=== PATIENT | male | born 1985 | race Caucasian/White ===

== ENCOUNTER 2022-02-04 13:08 | Emergency (ER) | payer MEDICAID, SELFPAY ==
[2022-02-04 13:23] VITALS: BP 120/64; PULSE 95; RESP 16; TEMP 36.7; O2SAT 98; BMI 22.1
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
[2022-02-04] MEDS: Ibuprofen 600 MG TABLET PO (18:35)
--- NOTE | 2022-02-04 18:39 | PC.NURSE ---
pt a&ox3, medicated per provider order.
== END 2022-02-04 18:40 | disposition home or self-care (01) ==
PROVIDERS: Emergency Provider Emergency Medicine
DX: S16.1XXA Strain of muscle, fascia and tendon at neck level, initial encounter (principal); S39.012A Strain of muscle, fascia and tendon of lower back, initial encounter; V43.52XA Car driver injured in collision with other type car in traffic accident, initial encounter; R51.9 Headache, unspecified; Y93.89 Activity, other specified; Y92.414 Local residential or business street as the place of occurrence of the external cause; Y99.8 Other external cause status
CPT/HCPCS: 99283

== ENCOUNTER 2022-04-10 11:58 | Emergency (ER) | payer MEDICAID, SELFPAY ==
[2022-04-10 12:10] VITALS: BP 120/74; PULSE 85; RESP 18; TEMP 36.7; O2SAT 97; BMI 22.1
[2022-04-10] MEDS: Tetracaine HCl/PF 0.5% Oph Sol 4 ML DROPS 3 DROP EYE-BOTH (12:30)
[2022-04-10] MEDS: Fluorescein Sodium STRIP 1 STRIP EYE-BOTH (12:31)
--- NOTE | 2022-04-10 12:42 | ED_ITS ---
HPI - Eye Problem General Chief complaint: Eye Problems Stated complaint: metal in eye Time Seen by Provider: 04/10/22 12:18 Source: patient Mode of arrival: ambulatory History of Present Illness HPI Narrative: 36-year-old male with no significant past medical history presenting to the ED complaining of foreign body to right eye since s/p welding at work and something hitting eye, admits was wearing safety glasses. Was seen at urgent care last night, they attempted to remove foreign body with needle however unsuccessful and was instructed to come to the ED. reports increased tearing and discomfort to right eye. denies wearing glasses or contacts, vision change/loss, fever. Was not given any prescriptions upon urgent care discharge. MD chief complaint: eye pain and foreign body Onset (ago): day(s) Related Data Previous Rx's Medication Instructions Recorded cyclobenzaprine 10 mg tablet 10 mg PO TID PRN muscle spasm #20 02/04/22 tabs ibuprofen 800 mg tablet 800 mg PO Q8H PRN pain #30 tabs 02/04/22 erythromycin 5 mg/gram (0.5 %) eye 1 appl ophthalmic (eye) 6XD 7 days 04/10/22 ointment #3.5 grams Allergies Allergy/AdvReac Type Severity Reaction Status Date / Time percocet Allergy Unknown itching Uncoded 08/24/12 00:00 Review of Systems Review of Systems: Constitutional: No Fever, No Chills, No Fatigue, No Malaise ENT/Mouth: No Ear Pain, No Nasal Congestion, No sore throat, No Rhinorrhea, No Swallowing Difficulty Eyes: + Eye Pain, No Swelling, + Redness, + Foreign Body, + tearing, No Vision Changes Cardiovascular: No Chest Pain, No SOB, No Palpitations Respiratory: No Cough, No Sputum, No Dyspnea Gastrointestinal: No Nausea, No Vomiting, No Diarrhea, No Constipation, No Abdominal pain Musculoskeletal: No joint pain, No Myalgias, No Joint Swelling Skin: No Skin Lesions, No rash Neuro: No Weakness, No Numbness, No Paresthesias, No Loss of Consciousness, No Dizziness, No Headache Yes all other systems are reviewed and are negative Constitutional: Constitutional: Reports as per [facility] Past Medical History Attestation statement: The following information was validated with the patient. Social History Social History Advance Directives: No Advance Directives Information Provided: Yes Physical Exam Vital Signs: Vital Signs: Last Vital Signs Temp 98.0 F 04/10/22 12:10 Pulse 85 04/10/22 12:10 Resp 18 04/10/22 12:10 BP 120/74 04/10/22 12:10 Pulse Ox 97 04/10/22 12:10 O2 Del Method 04/10/22 12:10 BMI result Body Mass Index 22.1 Const: General: cooperative, healthy appearing and no acute distress Orientation/consciousness: patient oriented x3 Limitations: no limitations HEENT: Head: Yes normal to inspection and Yes atraumatic Ears: hearing grossly normal bilaterally General nose exam: Normal external nose present Face and sinus: Yes normal facial exam Eyes: General: appearance normal, both eyes and all related structures Alignment and Position: alignment normal Periorbital: periorbital findings normal Eyelids: Yes eyelids normal Conjunctivae: conjunctival abnormal right conjunctival injection Corneas: corneas abnormal on the right fluorescein used and foreign body metallic and at clock position (4 o'clock); without a rust ring and fluorescein used Pupils: Equal, round and reactive pupils present EOM: EOMs intact bilaterally Direct Ophthalmoscopy: normal light reflex Neck: Neck: Yes normal visual inspection and Yes no meningeal signs Resp: Effort & Inspection: normal respiratory effort and no respiratory distress Cardio: Rate: regular rate Heart sounds: S1 normal heart sound present and S2 normal heart sound present Skin: Rashes: no rashes Wounds: no wounds Neuro: General: patient oriented x3, tone normal and no meningeal signs Cranial nerves: Yes Equal, round and reactive pupils present Gait exam (Neuro): Normal gait present Extrem: General: Yes normal to inspection Course Course Course Narrative: -foreign body successfully removed with 21 gauge needle Results discussed with patient including worrisome signs and symptoms and strict return precautions, and when to return to the emergency department. They verbalized understanding and feel safe for discharge at this time. MDM - Eye Problem MDM Narrative Medical decision making narrative: 36-year-old male with no significant past medical history presenting to the ED complaining of foreign body to right eye since s/p welding at work and something hitting eye, admits was wearing safety glasses. On exam vital signs stable, NAD, nontoxic, foreign body visualized in right eye at 04:00 o'clock position, no appreciable rust ring. Fluorescein uptake at foreign body site. Visual acuity 20/25 in bilateral eyes. No evidence of periorbital/orbital cellulitis or globe rupture. No appreciable ulceration Plan: Foreign body removal attempt Differential Diagnosis Differential diagnosis: Likely corneal abrasion; Unlikely periorbital cellulitis or corneal ulcer Medical Records Attestation: I reviewed the patient's medical records. Lab Data Attestation: I reviewed the patient's lab results. Procedures FB Removal Eye Location: eye (R) Topical anesthetic used: tetracaine Foreign body: metal Evidence of corneal penetration: Yes Technique: cotton tip swab and needle Procedure performed under: direct visualization with magnification Post-procedure medication: ophthalmic antibiotic Patient tolerated procedure: well Discharge Plan Discharge Clinical Impression: Foreign body in eye Patient Disposition: Home, Self-Care Instructions: Eye Foreign Body (ED) Additional Instructions: The foreign body was removed from your eye today. Start using erythromycin eye ointment YOU NEED TO HAVE CLOSE FOLLOW-UP WITH OPHTHALMOLOGY, CALL Tuesday TO MAKE AN APPOINTMENT If he develops vision change/loss, increasing or unremitting pain please return to the emergency department Prescriptions: New erythromycin 5 mg/gram (0.5 %) ointment 1 appl ophthalmic (eye) 6XD 7 Days Qty: 3.5 0RF No Action cyclobenzaprine 10 mg tablet 10 mg PO TID PRN (Reason: muscle spasm) Qty: 20 0RF ibuprofen 800 mg tablet 800 mg PO Q8H PRN (Reason: pain) Qty: 30 0RF Referrals: Jordi Hyde [Physician] - 2 days Stand Alone Forms: Work/School Release
== END 2022-04-10 13:00 | disposition home or self-care (01) ==
PROVIDERS: Emergency Provider Emergency Medicine
DX: T15.01XA Foreign body in cornea, right eye, initial encounter (principal); X58.XXXA Exposure to other specified factors, initial encounter; Y93.89 Activity, other specified; Y92.9 Unspecified place or not applicable; Y99.8 Other external cause status
CPT/HCPCS: 65220; 99283; 99284

== ENCOUNTER 2022-07-09 09:42 | Emergency (ER) | payer MEDICAID, SELFPAY ==
[2022-07-09 09:56] VITALS: BP 128/91; PULSE 87; RESP 18; TEMP 36.6; O2SAT 99; BMI 22.1
[2022-07-09] MEDS: Tetracaine HCl/PF 0.5% Oph Sol 4 ML DROPS 1 DROP EYE-RIGHT (10:55)
[2022-07-09] MEDS: Fluorescein Sodium STRIP 1 STRIP EYE-RIGHT (10:56)
--- NOTE | 2022-07-09 10:59 | ED.EYEPROB ---
HPI - Eye Problem General Chief complaint: Eye Problems <Leonor Doshi NP - Last Filed: 07/09/22 11:24> Stated complaint: fb r eye metal WRI <Leonor Doshi NP - Last Filed: 07/09/22 11:24> Time Seen by Provider: 07/09/22 10:23 <Leonor Doshi NP - Last Filed: 07/09/22 11:24> Source: patient and family <Leonor oDshi NP - Last Filed: 07/09/22 11:24> Mode of arrival: ambulatory <Leonor Doshi NP - Last Filed: 07/09/22 11:24> Limitations: no limitations <Leonor Doshi NP - Last Filed: 07/09/22 11:24> History of Present Illness HPI Narrative: 37-year-old male healthy, up-to-date with tetanus presents with right eye pain, tearing after he believes a 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 Patient reports he was wearing safety glasses but he felt a piece of metal while he was running go in his eye. He thought of fell out when he woke up this morning he had redness, pain, tearing from the right eye. Patient does not use any contacts. Patient reports history of metal foreign body in the past. Has been seen by Dr. Hyde before. <Leonor Doshi NP - Last Filed: 07/09/22 11:24> MD chief complaint: eye pain and eye redness <Leonor Doshi NP - Last Filed: 07/09/22 11:24> Related Data Home medications: Previous Rx's Medication Instructions Recorded cyclobenzaprine 10 mg tablet 10 mg PO TID PRN muscle spasm #20 02/04/22 tabs ibuprofen 800 mg tablet 800 mg PO Q8H PRN pain #30 tabs 02/04/22 erythromycin 5 mg/gram (0.5 %) eye 1 appl ophthalmic (eye) 6XD 7 days 04/10/22 ointment #3.5 grams <Leonor Doshi NP - Last Filed: 07/09/22 11:24> Allergies/adverse reactions: Allergies Allergy/AdvReac Type Severity Reaction Status Date / Time percocet Allergy Unknown itching Uncoded 07/09/22 10:00 <Leonor Doshi NP - Last Filed: 07/09/22 11:24> Review of Systems Review of Systems: Yes all other systems are reviewed and are negative <Leonor Doshi NP - Last Filed: 07/09/22 11:24> Constitutional: Constitutional: Reports no additional constitutional complaints, Denies body ache(s), Denies chills, Denies fever(s), Denies headache(s) and Denies weakness <Leonor Doshi MANAGER HARDWARE - Last Filed: 07/09/22 11:24> Eyes: Eyes: Reports no additional eye complaints, Denies change in vision, Reports eye discharge, Reports eye pain and Reports photophobia <Leonor Doshi NP - Last Filed: 07/09/22 11:24> ENT: Reports system reviewed and no additional complaints, except as documented, Denies dizziness, Denies headache(s), Denies nasal congestion, Denies nasal discharge and Denies neck pain <Leonor Doshi NP - Last Filed: 07/09/22 11:24> Cardiovascular: Cardiovascular: Reports no additional cardiovascular complaints, Denies chest pain, Denies leg edema and Denies dyspnea <Leonor Doshi MANAGER HARDWARE - Last Filed: 07/09/22 11:24> Respiratory: Respiratory: Reports no additional respiratory complaints, Denies cough and Denies dyspnea <Leonor Doshi NP - Last Filed: 07/09/22 11:24> Gastrointestinal: Gastrointestinal: Reports no additional gastrointestinal complaints, Denies abdominal pain, Denies diarrhea, Denies nausea and Denies vomiting <Leonor Doshi MANAGER HARDWARE - Last Filed: 07/09/22 11:24> Genitourinary: Genitourinary: Denies urinary incontinence <Leonor Doshi NP - Last Filed: 07/09/22 11:24> Musculoskeletal: Musculoskeletal: Reports no additional musculoskeletal complaints, Denies back pain, Denies arthralgias, Denies joint swelling, Denies neck pain, Denies numbness and Denies tingling <Leonor Doshi MANAGER HARDWARE - Last Filed: 07/09/22 11:24> Integumentary/Breasts: Skin/Breast: Reports system reviewed and no additional complaints, except as docu and Denies rash <Leonor Doshi NP - Last Filed: 07/09/22 11:24> Neurologic: Reports system reviewed and no additional complaints, except as documented, Denies Abnormal speech present, Denies dizziness, Denies headache(s), Denies numbness, Denies tingling and Denies weakness <Leonor Doshi NP - Last Filed: 07/09/22 11:24> [facility] Past Medical History Attestation statement: The following information was validated with the patient. <Leonor Doshi NP - Last Filed: 07/09/22 11:24> Source: old records reviewed and nursing notes reviewed <Leonor Doshi NP - Last Filed: 07/09/22 11:24> Social History Social History: Social History Advance Directives: No Advance Directives Information Provided: Yes <Leonor Doshi NP - Last Filed: 07/09/22 11:24> Physical Exam Vital Signs: Vital Signs: Last Vital Signs Temp 97.8 F 07/09/22 09:56 Pulse 87 07/09/22 09:56 Resp 18 07/09/22 09:56 BP 128/91 H 07/09/22 09:56 Pulse Ox 99 07/09/22 09:56 O2 Del Method 07/09/22 09:56 BMI result Body Mass Index 22.1 <Leonor Doshi NP - Last Filed: 07/09/22 11:24> Vital Signs: Last Vital Signs Temp 97.8 F 07/09/22 09:56 Pulse 87 07/09/22 09:56 Resp 18 07/09/22 09:56 BP 128/91 H 07/09/22 09:56 Pulse Ox 99 07/09/22 09:56 O2 Del Method 07/09/22 09:56 BMI result Body Mass Index 22.1 <Adalberto Valentine MD - Last Filed: 07/09/22 15:58> Const: General: cooperative, healthy appearing, comfortable and no acute distress <Leonor Doshi NP - Last Filed: 07/09/22 11:24> Orientation/consciousness: patient oriented x3 <Leonor Doshi NP - Last Filed: 07/09/22 11:24> Limitations: no limitations <Leonor Doshi NP - Last Filed: 07/09/22 11:24> HEENT: Head: Yes normal to inspection <Leonor Doshi MANAGER HARDWARE - Last Filed: 07/09/22 11:24> Ears: hearing grossly normal bilaterally and TM's normal bilaterally <Leonor Doshi MANAGER HARDWARE - Last Filed: 07/09/22 11:24> General nose exam: Normal external nose present <Leonor Doshi NP - Last Filed: 07/09/22 11:24> Face and sinus: Yes normal facial exam <Leonor Doshi MANAGER HARDWARE - Last Filed: 07/09/22 11:24> Mouth: Normal oral and palatal mucosa present <Leonor Doshi MANAGER HARDWARE - Last Filed: 07/09/22 11:24> Throat: Yes posterior oropharynx normal <Leonor Doshi MANAGER HARDWARE - Last Filed: 07/09/22 11:24> Eyes: Other: See documentation of visual acuity <Leonor Doshi NP - Last Filed: 07/09/22 11:24> General: appearance normal, both eyes and all related structures <Leonor Doshi NP - Last Filed: 07/09/22 11:24> Visual Barroso: normal visual barroso by confrontation <Leonor Doshi MANAGER HARDWARE - Last Filed: 07/09/22 11:24> Alignment and Position: alignment normal <Leonor Doshi NP - Last Filed: 07/09/22 11:24> Periorbital: periorbital findings normal <Leonor Doshi NP - Last Filed: 07/09/22 11:24> Eyelids: Yes eyelids normal <Leonor Doshi NP - Last Filed: 07/09/22 11:24> Conjunctivae: conjunctival abnormal (Right conjunctival injection) <Leonor Doshi MANAGER HARDWARE - Last Filed: 07/09/22 11:24> Sclerae: scleral abnormal (Right scleral edema) <Leonor Doshi MANAGER HARDWARE - Last Filed: 07/09/22 11:24> Corneas: corneas abnormal and fluorescein used (At the 5 o'clock position of the cornea there is a foreign bodyw/rust ring) <Leonor Doshi MANAGER HARDWARE - Last Filed: 07/09/22 11:24> Pupils: Equal, round and reactive pupils present <Leonor Doshi MANAGER HARDWARE - Last Filed: 07/09/22 11:24> EOM: EOMs intact bilaterally <Leonor Doshi MANAGER HARDWARE - Last Filed: 07/09/22 11:24> Direct Ophthalmoscopy: normal light reflex and photophobia <Leonor Doshi MANAGER HARDWARE - Last Filed: 07/09/22 11:24> Neck: Neck: Yes normal visual inspection <Leonor Doshi MANAGER HARDWARE - Last Filed: 07/09/22 11:24> Chest: Chest palpation & inspection: normal inspection of the chest <Leonor Doshi MANAGER HARDWARE - Last Filed: 07/09/22 11:24> Resp: Effort & Inspection: normal respiratory effort <Leonor Doshi MANAGER HARDWARE - Last Filed: 07/09/22 11:24> Auscultation: clear to auscultation bilaterally <Leonor Doshi MANAGER HARDWARE - Last Filed: 07/09/22 11:24> Cardio: Rate: regular rate <Leonor Doshi MANAGER HARDWARE - Last Filed: 07/09/22 11:24> Rhythm: regular rhythm <Leonor Doshi MANAGER HARDWARE - Last Filed: 07/09/22 11:24> Peripheral pulses: Peripheral pulses 2+ throughout <Leonor Doshi MANAGER HARDWARE - Last Filed: 07/09/22 11:24> GI: Inspection: Yes normal to inspection <Leonor Doshi MANAGER HARDWARE - Last Filed: 07/09/22 11:24> Palpation (GI): Soft to palpation and nontender <Leonor Doshi MANAGER HARDWARE - Last Filed: 07/09/22 11:24> Auscultation: normal bowel sounds <Leonor Doshi MANAGER HARDWARE - Last Filed: 07/09/22 11:24> Back/Spine/Pelvis: Thoracic/Lumbar Spine: thoracic and lumbar spine normal to inspection <Leonor Doshi MANAGER HARDWARE - Last Filed: 07/09/22 11:24> Skin: General skin exam: no rashes or lesions noted <Leonor Doshi MANAGER HARDWARE - Last Filed: 07/09/22 11:24> Neuro: General: patient oriented x3, no focal motor deficits and normal sensation to monofilament <Leonor Doshi MANAGER HARDWARE - Last Filed: 07/09/22 11:24> Cranial nerves: Yes Equal, round and reactive pupils present <Leonor Doshi MANAGER HARDWARE - Last Filed: 07/09/22 11:24> Cognition (Neuro): normal cognition <Leonor Doshi MANAGER HARDWARE - Last Filed: 07/09/22 11:24> Speech: No Abnormal speech present <Leonor Doshi MANAGER HARDWARE - Last Filed: 07/09/22 11:24> Gait exam (Neuro): Normal gait present <Leonor Doshi MANAGER HARDWARE - Last Filed: 07/09/22 11:24> Motor exam (neuro): 5/5 motor strength present throughout <Leonor Doshi MANAGER HARDWARE - Last Filed: 07/09/22 11:24> Extrem: General: Yes normal to inspection <Leonor Doshi MANAGER HARDWARE - Last Filed: 07/09/22 11:24> Medications Administered Discontinued Medications Generic Name Dose Route Start Last Admin Trade Name Freq PRN Reason Stop Dose Admin Fluorescein Sodium 1 strip 07/09/22 10:03 07/09/22 10:56 Fluorescein Sodium Strip EYE-RIGHT 07/09/22 10:04 1 strip ONCE ONE Administration Tetracaine HCl 1 drop 07/09/22 10:03 07/09/22 10:55 Tetracaine Hcl/Pf 0.5% Oph Kaela 4 Ml Drops EYE-RIGHT 07/09/22 10:04 1 drop ONCE ONE Administration <Leonor Doshi MANAGER HARDWARE - Last Filed: 07/09/22 11:24> Medications Administered Discontinued Medications Generic Name Dose Route Start Last Admin Trade Name Freq PRN Reason Stop Dose Admin Fluorescein Sodium 1 strip 07/09/22 10:03 07/09/22 10:56 Fluorescein Sodium Strip EYE-RIGHT 07/09/22 10:04 1 strip ONCE ONE Administration Tetracaine HCl 1 drop 07/09/22 10:03 07/09/22 10:55 Tetracaine Hcl/Pf 0.5% Oph Kaela 4 Ml Drops EYE-RIGHT 07/09/22 10:04 1 drop ONCE ONE Administration <Adalberto Valentine MD - Last Filed: 07/09/22 15:58> Medical Decision Making Medical Decision Making MDM Narrative: 37-year-old male here with foreign body right eye from work injury yesterday. Patient with redness, pain and tearing from the right eye. Tetanus is up-to-date. Will need visual acuity, eye exam. <Leonor Doshi NP - Last Filed: 07/09/22 11:24> Differential Diagnosis Differential Diagnoses: The differential diagnosis associated with the presentation includes <Leonor Doshi NP - Last Filed: 07/09/22 11:24> Foreign body, abrasion <Leonor Doshi NP - Last Filed: 07/09/22 11:24> Consult Healthcare Provider Management of the patient was discussed with: Pharmacist Helper <Leonor Doshi NP - Last Filed: 07/09/22 11:24> Discussed with morning caregiver Dr. Hyde. Will see patient in office today due to rust ring present on exam. He will treat the patient with any outpatient prescriptions that are deemed appropriate. Recommended no installation of antibiotic eye ointment or eyedrops prior to evaluation <Leonor Doshi NP - Last Filed: 07/09/22 11:24> Attestation Attending Attestation: I personally reviewed PA/resident/nurse practitioner note. I reviewed a all results and treatment plan. I agree with the assessment and plan. I agree with disposition <Adalberto Valentine MD - Last Filed: 07/09/22 15:58> Procedures Foreign Body Removal Site: right (eye) <Leonor Doshi NP - Last Filed: 07/09/22 11:24> Description of foreign body: other (Metal) <Leonor Doshi NP - Last Filed: 07/09/22 11:24> Sedation/Analgesia: other (Topical tetracaine) <Leonor Doshi NP - Last Filed: 07/09/22 11:24> Technique: other (Removed with 18 gauge needle) <Leonor Doshi NP - Last Filed: 07/09/22 11:24> Confirmed by:: direct visualization <Leonor Doshi NP - Last Filed: 07/09/22 11:24> Complications: none <Leonor Doshi NP - Last Filed: 07/09/22 11:24> Post-procedure exam: awake, alert <Leonor Doshi NP - Last Filed: 07/09/22 11:24> Neurovascular: other (Patient feels better postprocedure) <Leonor Doshi NP - Last Filed: 07/09/22 11:24> Discharge Plan Discharge Clinical Impression: Eye foreign body, Corneal rust ring <Leonor Doshi NP - Last Filed: 07/09/22 11:24> Patient Disposition: Home, Self-Care <Leonor Doshi NP - Last Filed: 07/09/22 11:24> Instructions: Eye Foreign Body (ED) <Leonor Doshi NP - Last Filed: 07/09/22 11:24> Additional Instructions: Go direct to Dr. Hyde office <Leonor Doshi NP - Last Filed: 07/09/22 11:24> Prescriptions: No Action cyclobenzaprine 10 mg tablet 10 mg PO TID PRN (Reason: muscle spasm) Qty: 20 0RF ibuprofen 800 mg tablet 800 mg PO Q8H PRN (Reason: pain) Qty: 30 0RF erythromycin 5 mg/gram (0.5 %) ointment 1 appl ophthalmic (eye) 6XD 7 Days Qty: 3.5 0RF <Leonor Doshi NP - Last Filed: 07/09/22 11:24> Referrals: Jordi Hyde [Physician] - 1 day <Leonor Doshi NP - Last Filed: 07/09/22 11:24> Stand Alone Forms: Work/School Release <Leonor Doshi NP - Last Filed: 07/09/22 11:24> Interventions: ED Discharge Assessment Last Done: 07/09/22 11:19 <Leonor Doshi NP - Last Filed: 07/09/22 11:24> Discharge Date/Time: 07/09/22 11:20 <Leonor Doshi NP - Last Filed: 07/09/22 11:24>
--- NOTE | 2022-07-09 11:00 | PC.NURSE ---
pt a+o x4, vss. pt c/o r eye pain relating to metal fragment that got into his eye yesterday while working. 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 he said the pain kept him up all night. he also reported that his vision was obstructed because he had difficulty keeping his eye open. pt has history of foreign object in the same eye. no other complaints.
== END 2022-07-09 11:20 | disposition home or self-care (01) ==
PROVIDERS: Emergency Provider Emergency Medicine
DX: T15.01XA Foreign body in cornea, right eye, initial encounter (principal); H44.701 Unspecified retained (old) intraocular foreign body, nonmagnetic, right eye
CPT/HCPCS: 65220; 99282; 99283

== ENCOUNTER 2023-05-27 08:13 | Emergency (ER) | payer OTHER, SELFPAY ==
--- NOTE | 2023-05-27 08:27 | ED_ITS ---
HPI - Altered Mental Status General Chief Complaint: Overdose Stated Complaint: unconscious Time Seen by Provider: 05/27/23 08:20 Source: patient and EMS Mode of arrival: EMS Limitations: no limitations History of Present Illness HPI narrative: Patient found unconscious with heroine next to him. He was awake and alert for EMS, he never received narcan. Patient denies suicidal or homicidal ideation. Denies using heroine this morning Onset (ago): minute(s) Related Data Previous Rx's Medication Instructions Recorded cyclobenzaprine 10 mg tablet 10 mg PO TID PRN muscle spasm #20 02/04/22 tabs ibuprofen 800 mg tablet 800 mg PO Q8H PRN pain #30 tabs 02/04/22 erythromycin 5 mg/gram (0.5 %) eye 1 appl ophthalmic (eye) 6XD 7 days 04/10/22 ointment #3.5 grams Allergies Allergy/AdvReac Type Severity Reaction Status Date / Time No Known Allergies Allergy Verified 05/27/23 08:45 Review of Systems Review of Systems: Yes all other systems are reviewed and are negative Neurologic: Denies Sensory deficit (Neuro) [facility] Social History Social History Unable to assess alcohol history related to: Refusing to respond Smoked in Last 30 Days: Yes Use of substances other than those prescribed or required for medical reasons: Refusing to respond Advance Directives: No Physical Exam ED Vital Signs: Vital Signs - 24 hr 05/27/23 08:31 Temperature 98.0 F Pulse Rate 83 Respiratory Rate 18 Blood Pressure 129/66 Pulse Oximetry 98 Oxygen Delivery Method Room Air BMI result Body Mass Index 22.2 Const Other: Male unkept looking older than stated age, lethargic Nutritional Appearance: average body habitus Orientation/consciousness: oriented to person and patient oriented x3 Limitations: no limitations HENMT Head: Yes normal to inspection Ears: external ears normal General nose exam: Normal external nose present Mouth: Normal oral and palatal mucosa present and oropharynx normal Throat: Yes posterior oropharynx normal Eyes Other: pinpoint pupils Neck Neck: Yes normal visual inspection Chest Chest palpation & inspection: normal inspection of the chest Resp Auscultation: clear to auscultation bilaterally Cardio Jugular venous distension: no JVD Rate: regular rate Rhythm: regular rhythm Heart sounds: S1 normal heart sound present and S2 normal heart sound present GI Inspection: Yes normal to inspection Palpation (GI): Soft to palpation, nontender and No hepatosplenomegaly present Auscultation: normal bowel sounds General: Yes no CVA tenderness Back/Spine/Pelvis Back: no CVA tenderness Skin General skin exam: no rashes or lesions noted Neuro General: oriented to person and patient oriented x3 Cranial nerves: Yes CN's II-XII intact bilaterally Motor exam (neuro): 5/5 motor strength present throughout Sensory Exam: No Sensory deficit (Neuro) Extrem General: Yes normal to inspection Psych Appearance: grossly normal Course Reevaluation(s) Reevaluation #1: Patient still awake able to ambulate, will dc home Time: 09:32 Medical Decision Making Differential Diagnosis Differential Diagnoses: The differential diagnosis associated with the presentation includes (opiate use, exhaustion) Admission/Observation Consideration of admission/observation: Escalation of care including admission/observation considered (upon arrival patient was considered for admission) Independent Historian Clinical information obtained from an independent historian. History obtained from or confirmed by: EMS and Other (police) Tests considered The following testing was considered but not selected: head CT considered but patient is nonfocal awake Chronic Conditions Patient?s care impacted by: Other (drug use) Social Determinants Patient?s care significantly limited by Social Determinants of Health including: Alcoholism and drug addiction in family Discharge Plan Discharge Clinical Impression: Exhaustion, Drug abuse Patient Disposition: Home, Self-Care Instructions: Fatigue (ED), Polysubstance Abuse (ED) Additional Instructions: should you use heroine or other opiate make sure you have someone to administer you narcan Prescriptions: No Action cyclobenzaprine 10 mg tablet 10 mg PO TID PRN (Reason: muscle spasm) Qty: 20 0RF ibuprofen 800 mg tablet 800 mg PO Q8H PRN (Reason: pain) Qty: 30 0RF erythromycin 5 mg/gram (0.5 %) ointment 1 appl ophthalmic (eye) 6XD 7 Days Qty: 3.5 0RF Referrals: Physician,Unknown J [Primary Care Provider] - 5 days
[2023-05-27 08:31] VITALS: BP 129/66; BP 148/90; PULSE 83; PULSE 84; RESP 18; TEMP 36.7; O2SAT 98; BMI 22.2
[2023-05-27] MEDS: Naloxone HCl Nasal TAKE HOME 4 MG SPRAY 8 MG NOSTRILALT (09:56)
== END 2023-05-27 09:56 | disposition home or self-care (01) ==
PROVIDERS: Emergency Provider Emergency Medicine
DX: T40.1X1A Poisoning by heroin, accidental (unintentional), initial encounter (principal); Y92.9 Unspecified place or not applicable; Z71.51 Drug abuse counseling and surveillance of drug abuser
CPT/HCPCS: 99283; 99284

== ENCOUNTER 2024-08-12 08:02 | Emergency (ER) | payer OTHER, SELFPAY ==
[2024-08-12 08:05] VITALS: BP 106/66; PULSE 94; RESP 18; TEMP 36.4; O2SAT 99; BMI 20.3
--- NOTE | 2024-08-12 09:31 | ED.GENADULT ---
HPI - General Adult General Chief complaint: Skin/Abscess/Foreign Body Stated complaint: abscess on arm Time Seen by Provider: 08/12/24 11:23 History of Present Illness HPI narrative: Patient complains of left forearm abscess that started several days ago, it is getting bigger now there is some redness around it There is no fever no chills no red stripe up arm, neurovascular intact distal any can move fingers hand and wrist normally He also complains of having a cold over the last 2 weeks, he did have a cough but it is very improved and he feels like he is getting better Related Data Previous Rx's ?Medication ?Instructions ?Recorded cyclobenzaprine 10 mg tablet 10 mg PO TID PRN muscle spasm #20 02/04/22 tabs ibuprofen 800 mg tablet 800 mg PO Q8H PRN pain #30 tabs 02/04/22 erythromycin 5 mg/gram (0.5 %) eye 1 appl ophthalmic (eye) 6XD 7 days 04/10/22 ointment #3.5 grams albuterol sulfate 90 mcg/actuation 2 puff inhalation Q4-6H PRN 08/12/24 aerosol inhaler shortness of breath or wheezing #8.5 grams cephalexin 500 mg tablet 500 mg PO QID 7 days #28 tabs 08/12/24 doxycycline hyclate 100 mg capsule 100 mg PO BID 7 days #14 caps 08/12/24 Allergies Allergy/AdvReac Type Severity Reaction Status Date / Time No Known Allergies Allergy Verified 08/12/24 08:15 [facility] Past Medical History [facility] Narrative: Patient uses heroin regularly by injection, he does have a history of sepsis after a similar abscess Source: nursing notes reviewed Social History Social History Unable to assess alcohol history related to: Refusing to respond Advance Directives: No Advance Directives Information Provided: No Physical Exam ED Vital Signs: Vital Signs - 24 hr 08/12/24 08:05 Temperature 97.5 F Pulse Rate 94 Respiratory Rate 18 Blood Pressure 106/66 Pulse Oximetry 99 Oxygen Delivery Method Room Air BMI result Body Mass Index 20.3 General appearance is calm comfortable no acute distress breathing easily The neck is supple The pharynx is clear The chest is clear to auscultation with full symmetric equal breath sounds no wheezing no adventitious sounds Heart no murmur Extremities full range motion x4 Skin exam the right lateral forearm has an area of fluctuance with surrounding erythema in the mid forearm, neurovascular intact distal, no lymphangitis Except for the abscess fluctuant area there was no other arm swelling Course Course Course Narrative: RME performed by Jenny Fishman PA-C. Patient is a 39 year old assigned male at presenting to the emergency department with a left forearm abscess. Detailed physical exam and review of systems are deferred to the water truck driver. Patient placed back in the waiting room pending room availability. Procedure note Left forearm abscess is cleansed with Betadine Anesthesia 5 cc 2% lidocaine Incision was made which was then probed with forceps with discharge of copious pus Packing was placed dressing applied The patient shows no evidence of pneumonia, he has had a cold for 2 weeks and is improving, vitals were normal lungs were clear Medications Administered Discontinued Medications Generic Name Dose Route Start Last Admin Trade Name Freq PRN Reason Stop Dose Admin Cephalexin HCl 500 mg 08/12/24 11:23 08/12/24 12:05 Cephalexin 500 Mg Capsule PO 08/12/24 11:24 500 mg ONCE ONE Administration Doxycycline Monohydrate 100 mg 08/12/24 11:23 08/12/24 12:04 Doxycycline Monohydrate 100 Mg Capsule PO 08/12/24 11:24 100 mg ONCE ONE Administration Ibuprofen 600 mg 08/12/24 12:00 08/12/24 12:05 Ibuprofen 600 Mg Tablet PO 08/12/24 12:01 600 mg ONCE ONE Administration Lidocaine HCl 5 ml 08/12/24 11:23 08/12/24 12:05 Lidocaine Hcl 1 % Mpf 5 Ml Vial SUBCUT 08/12/24 11:24 5 ml ONCE ONE Administration Oxycodone HCl 5 mg 08/12/24 12:00 08/12/24 12:05 Oxycodone Hcl Immed Release 5 Mg Tablet PO 08/12/24 12:01 5 mg ONCE ONE Administration Discharge Plan Discharge Clinical Impression: Abscess of skin or subcutaneous tissue, Cellulitis Patient Disposition: Home, Self-Care Additional Instructions: Abscess was drained and packed with gauze Return to the ER in 2 days for packing removal and wound check Return any time for spreading redness worse pain and swelling, fever, red stripe up arm, any worse condition or any concerns Your lungs were clear your vital signs were normal and in case you need it with her history of asthma I wrote for an inhaler Prescriptions: New albuterol sulfate 90 mcg/actuation HFA aerosol inhaler 2 puff inhalation Q4-6H PRN (Reason: shortness of breath or wheezing) Qty: 8.5 0RF doxycycline hyclate 100 mg capsule 100 mg PO BID 7 Days Qty: 14 0RF cephalexin 500 mg tablet 500 mg PO QID 7 Days Qty: 28 0RF No Action cyclobenzaprine 10 mg tablet 10 mg PO TID PRN (Reason: muscle spasm) Qty: 20 0RF ibuprofen 800 mg tablet 800 mg PO Q8H PRN (Reason: pain) Qty: 30 0RF erythromycin 5 mg/gram (0.5 %) ointment 1 appl ophthalmic (eye) 6XD 7 Days Qty: 3.5 0RF Print Language: Yi
--- OUTSIDE RECORDS SUMMARY | 2024-08-12 12:02 | XMS_ITS | Clinical Summary ---
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 Role Phone Unavailable Primary Care Provider Unavailabl e Social History Tobacco Use Types Packs/Day Years Used Date Smoking Tobacco: Never Assessed Sex and Gender Information Value Date Recorded Sex Assigned at Male 04/19/2022 10:39 AM EDT Legal Sex Male 10:39 AM EDT Gender Identity Choose not to disclose 10:39 AM EDT Sexual Orientation Choose not to disclose 2021 10:39 AM EDT Plan of Treatment Health Maintenance Due Date Last Done Comments Depression Screening 1987 Lipid Panel 1987 Alcohol/Substance Use Screening 1999 Tobacco Screening 1999 Family Planning (PISQ) 2002 DTaP/Tdap/Td Vaccines (1 - Tdap) 2006 Hepatitis B Vaccines (1 of 3 - 19+ 3-dose series) 2006 COVID-19 Vaccine ( - 2023-2 5 season) 2024 Influenza Vaccine (#1) 2024 Zoster Vaccines (1 of 2) 2037 RSV Patients and Pa tients Aged 60 years or older (1 - 1-dose 75+ series) 2062 HIB Vaccines Aged Out No longer eligi ble based on patient's age to complete this topic HPV Vaccines Aged Out No longer eligi ble based on patient's age to complete this topic Hepatitis A Vaccines Aged Out No long er eligible based on patient's age to complete this topic IPV Vaccines Aged Out No longer eligi ble based on patient's age to complete this topic Meningococcal Vaccine Aged Out No ruddy todd eligible based on patient's age to complete this topic Pneumococcal Vaccine: Pediat rics (0 to 5 Years) and At-Risk Patients (6 to 49) Years) Aged Out No longer eligible b ased on patient's age to complete this topic RSV under 20 months Aged Out No longe r eligible based on patient's age to complete this topic Rotavirus Vaccines Aged Out No longer eligible based on patient's age to complete this topic
[2024-08-12] MEDS: Doxycycline Monohydrate 100 MG CAPSULE PO (12:04)
[2024-08-12] MEDS: cephALEXin 500 MG CAPSULE PO (12:05)
[2024-08-12] MEDS: oxyCODONE HCl Immed Release 5 MG TABLET PO (12:05)
[2024-08-12] MEDS: Ibuprofen 600 MG TABLET PO (12:05)
[2024-08-12] MEDS: Lidocaine HCl 1 % MPF 5 ML VIAL SUBCUT (12:05)
[2024-08-12 12:18] VITALS: BP 106/66; PULSE 94; RESP 18; TEMP 36.4; O2SAT 99
== END 2024-08-12 12:18 | disposition home or self-care (01) ==
PROVIDERS: Emergency Provider Emergency Medicine
DX: L02.414 Cutaneous abscess of left upper limb (principal); F11.10 Opioid abuse, uncomplicated; Z79.899 Other long term (current) drug therapy
CPT/HCPCS: 10060; 99283; 99284; J2003